=== PATIENT | male | born 1985 | race Caucasian/White ===

== ENCOUNTER → 2020-11-24 10:27 | Outpatient (BNVA) | payer BC, SELFPAY | PROVIDERS: Visit Provider Nurse Practitioner Family | DX: Z20.822 Contact with and (suspected) exposure to COVID-19 (principal) | CPT/HCPCS: 87635 ==

== ENCOUNTER 2020-11-30 17:51 | Emergency (ER) | payer BC, SELFPAY ==
--- NOTE | 2020-11-30 17:57 | XRR_ITS ---
PROCEDURE INFORMATION: Exam: XR Chest Exam date and time: 11/30/2020 5:57 PM Age: 34 years old Clinical indication: Cough; Additional info: Weak, covid + TECHNIQUE: Imaging protocol: XR of the chest. Views: 1 view. COMPARISON: No relevant prior studies available. FINDINGS: Lungs: Lungs are clear bilaterally. Pleural spaces: No pleural effusion. No pneumothorax. Heart/Mediastinum: The cardiac silhouette and mediastinal contours are unremarkable. Bones/joints: Unremarkable for age. XR/XR chest 1V portable 12080 IMPRESSION: No acute cardiopulmonary process.
[2020-11-30 18:01] VITALS: BP 107/78; PULSE 100; RESP 20; TEMP 38.1; O2SAT 94; BMI 26.4
== END 2020-12-01 00:17 | disposition left against medical advice (07) ==
PROVIDERS: Emergency Provider Nurse Practitioner Family
DX: Z53.21 Procedure and treatment not carried out due to patient leaving prior to being seen by health care provider (principal)
CPT/HCPCS: 71045

== ENCOUNTER 2020-12-01 12:45 | Outpatient (CLI) | payer BC, SELFPAY ==
[2020-12-01 13:02] VITALS: BP 118/81; PULSE 90; RESP 16; TEMP 36.8; O2SAT 98; BMI 26.4
[2020-12-01 13:42] VITALS: BP 107/68; PULSE 87; RESP 16; TEMP 37.3; O2SAT 94
[2020-12-01 14:35] VITALS: BP 102/72; PULSE 85; RESP 16; TEMP 37.4; O2SAT 99
== END 2020-12-01 14:40 | disposition home or self-care (01) ==
LOC: OPS 12:47
PROVIDERS: Visit Provider Nurse Practitioner Family
DX: U07.1 COVID-19 (principal)
CPT/HCPCS: 96365

== ENCOUNTER 2021-11-20 00:06 | Emergency (ER) | payer BC, SELFPAY ==
[2021-11-20 00:08] VITALS: BP 138/84; PULSE 75; RESP 16; TEMP 36.4; O2SAT 95; BMI 25.7
--- NOTE | 2021-11-20 00:24 | ED_ITS ---
HPI - General Adult General: Chief complaint: General Medical Stated complaint: stung by yellow jacket Time Seen by Provider: 11/20/21 00:14 History of Present Illness: 35-year-old male patient comes in today for complaints of chest discomfort after being stung by a yellow jacket on his right arm. Patient reports at about 7:00 this evening he was stung twice by yellow jacket. Patient has had significant muscle tenderness and soreness since that time. Patient was unable to rest and came into the ER to be evaluated due to his chest discomfort. Associated symptoms: Reports chest pain; Deny dyspnea Review of Systems Const: Denies: fever(s) Card: Reports: chest pain Resp: Denies: dyspnea PFSH ED PFSH: Social History Smoking and tobacco status: current every day smoker (chew) smokeless tobacco Alcohol intake: never Physical Exam Const: COMMON NORMALS: alert HENMT: COMMON NORMALS: normocephalic HEAD & SCALP: normocephalic Neck/C-Spine: COMMON NORMALS: full ROM Chest: CHEST: Yes tenderness Resp: COMMON NORMALS: normal respiratory effort and clear to auscultation bilaterally AUSCULTATION: clear to auscultation bilaterally Cardio: COMMON NORMALS: regular rate and regular rhythm RATE: regular rate RHYTHM: regular rhythm Back/Pelvis: COMMON NORMALS: thoracic and lumbar spine normal to inspection Extremity: RIGHT UPPER EXTREMITY: Yes upper arm (Tenderness to palpation, mild redness and swelling) Right upper arm: Yes inspection, Yes palpation and Yes neurovascular exam Neuro: SENSORIUM/ORIENTATION: Yes alert Skin: LESIONS: lesion noted (Right upper arm to insect stings with surrounding redness and tenderness) Course Vital Signs: Vital signs: Vital Signs Temperature 97.5 F L 11/20/21 00:08 Pulse Rate 75 11/20/21 00:08 Respiratory Rate 16 11/20/21 00:08 Blood Pressure 138/84 11/20/21 00:08 Pulse Oximetry 95 11/20/21 00:08 Oxygen Delivery Me thod 11/20/21 00:08 MDM - General Adult Medical Decision Making 35-year-old male patient comes in today for complaints of tenderness to his chest and right upper arm after being stung by a yellow jacket at about 7:00 this evening. Patient was concerned due to breaths due to the pain. Patient appears well. Patient appears no acute distress. Lungs are clear to auscultation. Tenderness is noted along with redness to the right upper arm. Patient also has some chest wall tenderness. Vital signs are normal. Differential diagnosis includes local reaction to insect sting, malingering, anxiety, anaphylaxis. No signs of anaphylaxis is noted. Believe patient's pain is secondary to the inflammatory response from insect stings. Patient was given 30 mg of Toradol and 10 mg of dexamethasone. Discharge Plan Discharge Patient Disposition: Home Clinical Impression: Local reaction to insect sting Qualifiers: Encounter type: initial encounter Injury intent: accidental or unintentional Qualified Code(s): T63.481A - Toxic effect of venom of other arthropod, acciden magaly (unintentional), initial encounter Condition: Stable Prescriptions: New ibuprofen 800 mg tablet 800 mg PO TID PRN (Reason: pain) Qty: 20 0RF Discharge Orders: Discharge ED (Routine); Ordered 11/20/21 Ordered By: César Christensen Discharge Diet: Usual diet Discharge Activity: Increase activity as tolerated Patient Instructions: Insect Bite or Sting (ED) Activity Restrictions/Additional Instructions: Home and rest. Drink plenty of water with medication. Use acetaminophen or ibuprofen for pain. Follow-up with primary care as needed for further instructions. Return to ED for new concerns. 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
--- NOTE | 2021-11-20 00:28 | ECG_ITS ---
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 Measurements Intervals [place] Rate: 72 P: 44 MS: 195 QRS: 11 QRSD: 95 T: 49 QT: 350 QTc: 383 Interpretive Statements SINUS RHYTHM POSSIBLE RIGHT VENTRICULAR CONDUCTION DELAY [RSR (QR) IN V1/V2] MODERATE ST DEPRESSION [0.05+ mV ST DEPRESSION] No previous ECG available for comparison Electronically Signed On 11-20-2021 13:12:52 CDT by Miguel Posada M.D. [id number]
[2021-11-20] MEDS: dexamethasone 10 mg/mL INJ IM (00:42)
[2021-11-20] MEDS: ketorolac 30 mg/mL INJ IM (00:42)
[2021-11-20 00:48] VITALS: BP 129/77; PULSE 71; RESP 16; TEMP 36.4; O2SAT 96
[2021-11-20] MEDS: HYDROcodone-acetaminophen 5-325 mg Tablet 1 TAB PO (00:48)
== END 2021-11-20 00:49 | disposition home or self-care (01) ==
PROVIDERS: Emergency Provider Nurse Practitioner Family
DX: T63.481A Toxic effect of venom of other arthropod, accidental (unintentional), initial encounter (principal); F17.220 Nicotine dependence, chewing tobacco, uncomplicated
CPT/HCPCS: 93005; 99284; J1100; J1885